=== PATIENT | female | born 2000 | race Caucasian/White ===

== ENCOUNTER 2023-05-27 22:10 | Inpatient (IN) ==
[2023-05-27 23:25] LABS: Appearance Urine Clear (Clear); Bacteria Urine Automated 1+ (Negative); Bilirubin Urine Negative (Negative); Blood Urine 3+ (Negative); Color Urine Yellow; Epithelial Cell Urine Auto >30 /lpf (0-5); Glucose Urine UA Negative (Negative); Ketones Urine 2+ (Negative); Leukocyte Esterase Urine Trace (Negative); Nitrite Urine Negative (Negative); Protein Urine Trace (Negative); RBC Urine Automated 0-4 /hpf (0-4); Specific Gravity Urine 1.029 (1.000-1.030); Urobilinogen Urine Negative (Negative); pH Urine 6.5 (4.5-7.5)
[2023-05-27 23:26] LABS: Basophils # (auto) 0.03 K/uL (0.00-0.20); Basophils % (auto) 0.3 %; Eosinophils # (auto) 0.05 K/uL (0.00-0.50); Eosinophils % (auto) 0.5 %; Hematocrit (blood only) 46.2 % (37.0-47.0); Hemoglobin 15.5 g/dl (12.0-16.0); Immature Granulocytes # (auto) 0.03 K/uL (0.01-0.20); Immature Granulocytes % (auto) 0.3 %; Lymphocytes # (auto) 1.95 K/uL (1.20-3.40); Mean Corpuscular Hemoglobin 28.1 pg (25.0-34.0); Mean Corpuscular Hgb Conc 33.5 g/dL (32.0-36.0); Mean Corpuscular Volume 83.8 fL (80.0-100.0); Mean Platelet Volume 9.5 fL (9.4-12.4); Monocytes # (auto) 0.46 K/uL (0.11-0.59); Monocytes % (auto) 4.7 %; Neutrophils # (auto) 7.25 K/uL (1.40-6.50); Neutrophils % (auto) 74.2 %; Platelet Count 382 K/uL (130-400); RDW Coefficient of Variation 12.6 % (11.5-14.5); RDW Standard Deviation 38.4 fL (36.4-46.3); Red Blood Count 5.51 M/uL (4.20-5.40); White Blood Count 9.77 K/ul (4.8-10.8)
[2023-05-27] MEDS: IBUPROFEN 600 MG TAB PO STA (23:32)
[2023-05-27 23:39] LABS: Albumin Globulin Ratio 1.4 (0.9-2); Albumin Level 4.9 gm/dl (3.4-5.0); BUN Creatinine Ratio 13.3 (10-20); Bilirubin,Total 0.4 mg/dl (0.2-1.0); Calcium 9.9 mg/dl (8.6-10.3); Creatinine Clr Calc Pharmacy 93.5 ml/min; Est GFR (African American) 104.5 ml/min; Est GFR (Non-African American) 90.1 ml/min; Globulin 3.6 gm/dl (2.5-4.0); Potassium 3.5 mmol/L (3.5-5.1); Pregnancy Test, Serum Negative (Negative); Total Protein 8.5 gm/dl (6.0-8.3)
[2023-05-27 23:51] LABS: Acetaminophen < 3 ug/ml (10-30); Salicylate < 3.0 mg/dl (3.0-30)
[2023-05-27 23:54] LABS: Thyroid Stimulating Hormone 0.864 uIu/ml (0.300-4.500)
[2023-05-28 00:08] LABS: Amphetamines+Metham, Urine Neg (Neg); Barbiturates, Urine Neg (Neg); Benzodiazepine, Urine Neg (Neg); Cocaine, Urine Neg (Neg); MDMA (Ecstacy), Urine Neg (Neg); Marijuana, Urine Neg (Neg); Methadone, Urine Neg (Neg); Opiate, Urine Neg (Neg); Phencyclidine, Urine Neg (Neg)
--- NOTE | 2023-05-28 00:16 | Emergency Department Note ---
Impression & Plan Suicidal ideation, Depression, UTI (urinary tract infection) ED Provider Note HISTORY OF PRESENT ILLNESS: Patient is a 22-year-old female presenting with worsening depression and suicidal ideation. Patient reports she has a history of bipolar disorder and OCD. She was previously prescribed sertraline and stopped taking it in January 2023. She reports that she has had a lot of social stressors recently with graduate school and personal issues and had talked with her home provider and [place] who recommended that she restart her sertraline. She restarted it within the last week and has been having significant fatigue and worsening depression symptoms. She reports that she thinks that she should sleep for forever. Denies any plan for suicide. She has had a previous suicide attempt in eighth grade. She reports she used to practice cutting behaviors but has not done any recently. She vapes and drinks 4-5 shots of alcohol daily. She denies any homicidal ideation. Denies any auditory or visual hallucinations. ROS: as above PHYSICAL EXAM: Constitutional: Patient appears in no acute distress. HENT: Head: Normocephalic and atraumatic. Eyes: EOMI, PERRL Mouth/Throat: Mucous membranes moist. Neck: Trachea midline. Neck supple. Musculoskeletal: No edema, tenderness or deformity noted. Skin: Warm and dry. No rash, erythema, pallor or cyanosis Psychiatric: Intermittently tearful. Neurological: Alert and keenly responsive. CN II-XII grossly intact, moving all extremities equally and fully. MDM: - Vitals signs showed hypertension and tachycardia - History obtained via patient. History as above. - Chronic conditions affecting care: bipolar personality disorder; OCD - Differential diagnoses include, but are not limited to: UTI; alcohol intoxication; drug intoxication; depression; electrolyte abnormality - External medical records reviewed. - Patient seen in conjunction with behavioral health manager rn case. Patient is agreeable to voluntary admission for 201. - Laboratory workup interpreted by myself showed normal WBC; stable electrolytes; negative alcohol/salicylate/acetaminophen levels - COVID negative - UA showed evidence of infection. Patient given 500 mg PO keflex in ER. Will need to continue keflex 500 mg BID x5 days. - UDS negative - Patient medically cleared. She filled out 201, which I signed. - Patient was accepted to [address] inpatient psychiatric unit for further evaluation and management. ASSESSMENT AND PLAN: Diagnosis: suicidal ideation; depression; UTI Plan: Admit Past Med/Surg History Medical History No pertinent family history No pertinent past medical history Surgical History No pertinent past surgical history Social History Smoking Status: Current every day smoker Tobacco Type: E-cigarettes / Vaping Preferred Language: Honduran Feels Safe at Home: Yes Gender Identity: Female Allergies Allergies Allergy/AdvReac Type Severity Reaction Status Date / Time No Known Allergies Allergy Unverified 11/28/22 22:01 Home Meds Home Medications Medication Instructions Recorded Confirmed sertraline 50 mg tablet 50 mg PO DAILY 11/28/22 05/27/23 hydroxyzine HCl 25 mg tablet 25 mg PO HS 05/27/23 05/27/23 Previous Rx's Medication Instructions Recorded albuterol sulfate 90 mcg/actuation 2 inh inhalation Q4H PRN shortness 11/28/22 aerosol inhaler (Proventil HFA) of breath or wheezing #8.5 grams azithromycin 250 mg tablet See Rx Instructions PO .COMPLEX #6 12/15/22 tabs benzonatate 100 mg capsule 100 mg PO TID PRN cough #20 caps 12/15/22 Results & Data (ED) Vital Signs Vital Signs - 24 hr 05/27/23 22:17 05/28/23 01:36 Temperature 37.1 C Temperature Source Temporal Artery Scan Pulse Rate 104 H Pulse Rate [Finger] 65 Respiratory Rate 18 18 Respiratory Effort / Characteristics Non-Labored Spontaneous Respiratory Depth Normal Blood Pressure 147/90 H Blood Pressure [Left Arm] 115/79 Blood Pressure Mean 109 Blood Pressure Mean [Left Arm] 91 Blood Pressure Position Sitting Pulse Oximetry 96 99 Oxygen Delivery Method Room Air Room Air Sepsis Recent Fever Within 48 Hours No Sepsis New/Unexplained Change in Mental Status No Sepsis Action Taken by Nursing No Action Required Laboratory Data 05/27/23 22:42 05/27/23 22:42 Lab Results 05/27/23 05/27/23 05/27/23 Range/Units 22:35 22:38 22:42 WBC 9.77 (4.8-10.8) K/ul RBC 5.51 H (4.20-5.40) M/uL Hgb 15.5 (12.0-16.0) g/dl Hct 46.2 (37.0-47.0) % MCV 83.8 (80.0-100.0) fL MCH 28.1 (25.0-34.0) pg MCHC 33.5 (32.0-36.0) g/dL RDW Std Deviation 38.4 (36.4-46.3) fL RDW Coeff of Rom 12.6 (11.5-14.5) % Plt Count 382 (130-400) K/uL MPV 9.5 (9.4-12.4) fL Immature Gran % (Auto) 0.3 % Neut % (Auto) 74.2 % Lymph % (Auto) 20.0 % [place] % (Auto) 4.7 % Eos % (Auto) 0.5 % Baso % (Auto) 0.3 % Neut # (Auto) 7.25 H (1.40-6.50) K/uL Lymph # (Auto) 1.95 (1.20-3.40) K/uL [place] # (Auto) 0.46 (0.11-0.59) K/uL Eos # (Auto) 0.05 (0.00-0.50) K/uL Baso # (Auto) 0.03 (0.00-0.20) K/uL Immature Gran # (Auto) 0.03 (0.01-0.20) K/uL Sodium 139 (136-145) mmol/L Potassium 3.5 (3.5-5.1) mmol/L Chloride 103 (98-107) mmol/L Carbon Dioxide 26 (21-32) mmol/L Anion Gap 10 (3-11) BUN 12 (6-23) mg/dl Creatinine 0.90 (0.6-1.2) mg/dl Est Cr Clr Drug Dosing 93.5 ml/min Est GFR ( Amer) 104.5 ml/min Est GFR (Non-Af Amer) 90.1 ml/min BUN/Creatinine Ratio 13.3 (10-20) Glucose 98 (70-99(Fasting)) mg/dl Calcium 9.9 (8.6-10.3) mg/dl Total Bilirubin 0.4 (0.2-1.0) mg/dl AST 18 (13-39) U/L ALT 12 (7-52) U/L Alkaline Phosphatase 95 (34-104) U/L Total Protein 8.5 H (6.0-8.3) gm/dl Albumin 4.9 (3.4-5.0) gm/dl Globulin 3.6 (2.5-4.0) gm/dl Albumin/Globulin Ratio 1.4 (0.9-2) TSH 0.864 (0.300-4.500) uIu/ml HCG, Qual Negative (Negative) Urine Color Yellow Urine Appearance Clear (Clear) Urine pH 6.5 (4.5-7.5) Ur Specific [place] 1.029 (1.000-1.030) Urine Protein Trace H (Negative) Urine Glucose (UA) Negative (Negative) Urine Ketones 2+ H (Negative) Urine Blood 3+ H (Negative) Urine Nitrite Negative (Negative) Urine Bilirubin Negative (Negative) Urine Urobilinogen Negative (Negative) Ur Leukocyte Esterase Trace H (Negative) Urine WBC (Auto) 10-30 H (0-5) /hpf Urine RBC (Auto) 0-4 (0-4) /hpf U Hyaline Cast (Auto) 5-10 H (0-5) /lpf U Epithel Cells (Auto) >30 H (0-5) /lpf Urine Bacteria (Auto) 1+ H (Negative) Salicylates < 3.0 L (3.0-30) mg/dl Urine Opiates Screen Neg (Neg) Ur Methadone, Qual Neg (Neg) Acetaminophen < 3 L (10-30) ug/ml Urine Barbiturates Neg (Neg) Ur Phencyclidine (PCP) Neg (Neg) U Amphetamin/Meth Scrn Neg (Neg) MDMA (Ecstasy) Screen Neg (Neg) U Benzodiazepines Scrn Neg (Neg) Ur Cocaine Metabolite Neg (Neg) U Marijuana (THC) Screen Neg (Neg) Ethyl Alcohol mg/dL < 10.0 (<10.0) mg/dl SARS-CoV-2, RNA, NAAT NEGATIVE (NEGATIVE) Administered Medications Discontinued Medications Cephalexin HCl (Cephalexin 250 Mg Cap) 500 mg PO NOW ONE Stop: 05/28/23 00:13 Last Admin: 05/28/23 00:33 Dose: 500 mg Documented By: KMF Ibuprofen (Ibuprofen 600 Mg Tab) 600 mg PO NOW STA Stop: 05/27/23 23:10 Last Admin: 05/27/23 23:32 Dose: 600 mg Documented By: EDA Discharge Plan Visit Data Chief Complaint: Mental Health Evaluation Stated Complaint: SUICIDAL IDEATIONS/MENTAL HEALTH EVAL ED Provider: Merary Frances Discharge Problem: Suicidal ideation, Depression, UTI (urinary tract infection) Forms Stand Alone Forms: [facility] [employer], Suicide Prevention Resources Prescriptions Prescriptions: No Action sertraline 50 mg tablet 50 mg PO DAILY albuterol sulfate [Proventil HFA] 90 mcg/actuation HFA aerosol inhaler 2 inh inhalation Q4H PRN (Reason: shortness of breath or wheezing) Qty: 8.5 0RF azithromycin 250 mg tablet See Rx Instructions .ROUTE .COMPLEX Qty: 6 0RF Rx Instructions: take 500 mg today (day 1), then 250 mg for 4 days (days 2-5) benzonatate 100 mg capsule 100 mg PO TID PRN (Reason: cough) Qty: 20 0RF hydroxyzine HCl 25 mg Tablet 25 mg PO HS Referrals Referrals: PCP,NO [Primary Care Provider] -
[2023-05-28] MEDS: cephALEXin 250 MG CAP PO ONE (00:33)
[2023-05-28] MEDS ORDERED: MAGNESIUM HYDROXIDE SUSP 30 ML UDC PO PRN (02:56)
[2023-05-28] MEDS ORDERED: hydrOXYzine HCl 25 MG TAB PO PRN (02:56)
[2023-05-28] MEDS ORDERED: BISMUTH SUBSALICYLATE LIQD 236 ML PO PRN (02:56)
[2023-05-28] MEDS ORDERED: SODIUM CHLORIDE 0.65% NA SOLN 45 ML (OCEAN) PRN (02:56)
[2023-05-28] MEDS ORDERED: ALUMINUM/MAGNESIUM SUSP 30 ML UDC PO PRN (02:56)
[2023-05-28] MEDS: ACETAMINOPHEN 325 MG TAB PO PRN (15:47)
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
[2023-05-28] MEDS: fluvoxaMINE MALEATE 50 MG TAB PO SCH (17:54)
[2023-05-28] MEDS: cephALEXin 500 MG CAP PO SCH (17:55)
[2023-05-28] MEDS ORDERED: cephALEXin 500 MG CAP PO SCH (21:00)
[2023-05-29] MEDS: hydrOXYzine HCl 25 MG TAB PO PRN (00:05)
--- NOTE | 2023-05-29 16:30 | Psychiatric Progress Note ---
Date of Service May 29, 2023 Impression / Recommendations Impression 22 yo female with a hx of suicide attempt as teen presents with acute SI on retrial of Zoloft but denies other evidence of activation or bipolarity. Aftercare will likely be complicated by her plans to relocate to [place] for 3 months at the end of the semester. Overall, I spent a total of 36 minutes with this case, including review of chart, direct evaluation of the patient, counseling the patient, ordering med ication, coordination with nursing, and documentation. 05/29/2023: improving (1) Depression: (2) Borderline personality disorder: (3) UTI (urinary tract infection): Plan 05/29/2023: Patient reports had a UTI recently and doubts finished full course of antibiotics. Culture grew skin karlo. Patient is tolerating Luvox. Would like Vistaril scheduled. 05/28/2023: The patient was [facility] to [facility] on q15 min checks (behavioral with suicide precautions) for safety. The patient will participate in group, recreational, and milieu therapies and will be offered additional individual and family sessions as clinically appropriate. Risks/benefits/alternatives reviewed re: antidepressants for the treatment of depression and/or anxiety. Discussion included but was not limited to FDA warnings re: suicidality in adolescents and young adults. The patient agreed to a trial of Luvox in place of Zoloft. Continue Keflex course started in ED pending UC. Inventory Assets Strengths: intelligent, independent Needs: improve coping, outpatient therapy Suicide Risk Level Suicide Risk Level: Moderate (q15 min suicide checks) Risk Factors Assessment : Yes Do You Have Access To A Gun?: No Mental Health Diagnoses: Yes Previous Attempt: Yes Previous Psychiatric Hospitalization: Yes Protective Factors Assessment Employed: Yes Stable Relationships: Yes Supportive Family: Yes Interval History Identifying Information GERMAIN ROCKAnnamariaMEGAN is a 22-year-old F, [employer] grad student from [place], has a history of a prior suicide attempt, and was admitted on 05/28/23 01:54 on a 201 voluntary commitment for SI with urge to SIB. Chief Complaint OCD, N Review of Systems Sleep Information Total Hours of Sleep: 4.5 Sleep Comments: Admitted at 0218 Meal Information Percent Meal Consumed - Breakfast: 100 Percent Meal Consumed - Lunch: 90 Percent Meal Consumed - Dinner: 100 Subjective Subjective Patient was seen & assessed and interval progress reviewed with nursing and social work. Cooperative with unit routines. Had some DFA but Vistaril prn helpful and would like schedule. Declines antacid, stomach better last pm even with starting new medication. Future focussed with regard to applying for visa and taking test next week. Physical Exam Psychiatric Orientation: alert and oriented x 3 Apperance: appropriately dressed and appropriately groomed Eye Contact: good eye contact Motor Behavior: no abnormal motor movements Speech: normal rate/rhythm/volume of speech Affect: + depressed affect Mood: + depressed mood Thought Process: goal directed thought process Thought Content: reality based without delusions Suicidal Thoughts: denies suicidal thoughts (on unit) Homicidal Thoughts: denies homicidal thoughts Hallucinations: no auditory hallucinations and no visual hallucinations Cognition: attention grossly intact and language grossly intact Estimated Intelligence: consistent with education level Insight: + limited insight Judgment: + limited judgement Vital Signs (Past 24 Hours) Last Vital Signs Temp 36.1 C L 05/29/23 06:00 Pulse 68 05/29/23 06:43 Resp 16 05/29/23 06:00 BP 121/86 05/29/23 06:43 Pulse Ox 98 05/28/23 11:17 O2 Del Method Room Air 05/28/23 11:17 Results & Data ([facility]) Current Inpatient Medications Current Inpatient Medications: Current Inpatient Medications Acetaminophen (Acetaminophen 325 Mg Tab) 650 mg PO Q4H PRN PRN Reason: Headache or Minor Fever Stop: 06/27/23 02:55 Last Admin: 05/29/23 13:09 Dose: 650 mg Al Hydrox/Mg Hydrox/Simethicone (Aluminum/Magnesium Susp 30 Ml Udc) 30 ml PO Q4H PRN PRN Reason: GI Upset Stop: 06/27/23 02:55 Bismuth Subsalicylate (Bismuth Subsalicylate Liqd 236 Ml) 15 ml PO PRN PRN PRN Reason: Loose Stool Stop: 06/27/23 02:55 Cephalexin HCl (Cephalexin 500 Mg Cap) 500 mg PO QID MARIBEL; Protocol Stop: 06/02/23 17:09 Last Admin: 05/29/23 13:07 Dose: 500 mg Fluvoxamine Maleate (Fluvoxamine Maleate 50 Mg Tab) 25 mg PO DAILYBD MARIBEL Stop: 06/27/23 17:14 Last Admin: 05/28/23 17:54 Dose: 25 mg Hydroxyzine HCl (Hydroxyzine Hcl 25 Mg Tab) 50 mg PO HSZ PRN PRN Reason: Insomnia Stop: 06/27/23 02:55 Last Admin: 05/29/23 01:02 Dose: 50 mg Hydroxyzine HCl (Hydroxyzine Hcl 25 Mg Tab) 25 mg PO Q4H PRN PRN Reason: Anxiety Stop: 06/27/23 02:55 Hydroxyzine HCl (Hydroxyzine Hcl 25 Mg Tab) 50 mg PO HS MARIBEL Stop: 06/28/23 21:59 Magnesium Hydroxide (Magnesium Hydroxide Susp 30 Ml Udc) 30 ml PO DAILY PRN PRN Reason: Constipation Stop: 06/27/23 02:55 Sodium Chloride (Sodium Chloride 0.65% Na Soln 45 Ml ([place])) 1 - 2 sprays NA PRN PRN PRN Reason: Nasal Dryness/Congestion Stop: 06/27/23 02:55 Post Discharge Appointments Primary Care Physician Name Of Family Doctor/PCP: Fabiana Mejia [facility])
[2023-05-29] MEDS: hydrOXYzine HCl 25 MG TAB PO SCH (21:13)
--- NOTE | 2023-05-30 15:14 | Psychiatric Progress Note ---
Date of Service May 30, 2023 Impression / Recommendations Impression 22 yo female with a hx of suicide attempt as teen presents with acute SI on retrial of Zoloft but denies other evidence of activation or bipolarity. Aftercare will likely be complicated by her plans to relocate to [place] for 3 months at the end of the semester. Overall, I spent a total of 40 minutes with this case, including review of chart, direct evaluation of the patient, counseling the patient, ordering med ication, coordination with treatment team, and documentation. 05/30/2023: seems more anxious ahead of family meeting (1) Depression: (2) Borderline personality disorder: (3) UTI (urinary tract infection): Plan 05/30/2023: continue current medication and treatment plan. Prefers to complete antibiotics course since only a few more days. 05/29/2023: Patient reports had a UTI recently and doubts finished full course of antibiotics. Culture grew skin karlo. Patient is tolerating Luvox. Would like Vistaril scheduled. 05/28/2023: The patient was admitted to the [facility]) on q15 min checks (behavioral with suicide precautions) for safety. The patient will participate in group, recreational, and milieu therapies and will be offered additional individual and family sessions as clinically appropriate. Risks/benefits/alternatives reviewed re: antidepressants for the treatment of depression and/or anxiety. Discussion included but was not limited to FDA warnings re: suicidality in adolescents and young adults. The patient agreed to a trial of Luvox in place of Zoloft. Continue Keflex course started in ED pending UC. 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 Chief Complaint "I'm actually doing OK but have parameters for the meeting with my mom". Review of Systems Sleep Information Total Hours of Sleep: 6.5 Sleep Comments: Admitted at 0218 Meal Information Percent Meal Consumed - Breakfast: 50 Percent Meal Consumed - Lunch: 100 Percent Meal Consumed - Dinner: 50 Subjective Subjective Patient was seen & assessed and interval progress reviewed with treatment team. Patient has strong opinions re: specific staff. Remains focussed on return to campus tomorrow, no discharge promised. Denies any recurrence of SI. Feels eating/med tolerance is much improved. Finds Vistaril effective and would definitely like to continue on discharge, reports own supply. Physical Exam Psychiatric Orientation: alert and oriented x 3 Apperance: appropriately dressed and appropriately groomed Eye Contact: good eye contact Motor Behavior: no abnormal motor movements Speech: normal rate/rhythm/volume of speech Affect: euthymic affect Mood: + depressed mood Thought Process: goal directed thought process Thought Content: reality based without delusions Suicidal Thoughts: denies suicidal thoughts (on unit) Homicidal Thoughts: denies homicidal thoughts Hallucinations: no auditory hallucinations and no visual hallucinations Cognition: attention grossly intact and language grossly intact Estimated Intelligence: consistent with education level Insight: + limited insight Judgment: + limited judgement Vital Signs (Past 24 Hours) Last Vital Signs Temp 36.6 C 05/30/23 06:38 Pulse 72 05/30/23 06:40 Resp 16 05/30/23 06:38 BP 109/77 05/30/23 06:40 Pulse Ox 98 05/28/23 11:17 O2 Del Method Room Air 05/28/23 11:17 Results & Data ([facility]) Current Inpatient Medications Current Inpatient Medications: Current Inpatient Medications Acetaminophen (Acetaminophen 325 Mg Tab) 650 mg PO Q4H PRN PRN Reason: Headache or Minor Fever Stop: 06/27/23 02:55 Last Admin: 05/30/23 09:54 Dose: 650 mg Al Hydrox/Mg Hydrox/Simethicone (Aluminum/Magnesium Susp 30 Ml Udc) 30 ml PO Q4H PRN PRN Reason: GI Upset Stop: 06/27/23 02:55 Bismuth Subsalicylate (Bismuth Subsalicylate Liqd 236 Ml) 15 ml PO PRN PRN PRN Reason: Loose Stool Stop: 06/27/23 02:55 Cephalexin HCl (Cephalexin 500 Mg Cap) 500 mg PO QID MARIBEL; Protocol Stop: 06/02/23 10:00 Last Admin: 05/30/23 13:36 Dose: 500 mg Fluvoxamine Maleate (Fluvoxamine Maleate 50 Mg Tab) 25 mg PO DAILYBD MARIBEL Stop: 06/27/23 17:14 Last Admin: 05/29/23 17:17 Dose: 25 mg Hydroxyzine HCl (Hydroxyzine Hcl 25 Mg Tab) 50 mg PO HSZ PRN PRN Reason: Insomnia Stop: 06/27/23 02:55 Last Admin: 05/29/23 01:02 Dose: 50 mg Hydroxyzine HCl (Hydroxyzine Hcl 25 Mg Tab) 25 mg PO Q4H PRN PRN Reason: Anxiety Stop: 06/27/23 02:55 Hydroxyzine HCl (Hydroxyzine Hcl 25 Mg Tab) 50 mg PO HS MARIBEL Stop: 06/28/23 21:59 Last Admin: 05/29/23 21:13 Dose: 50 mg Magnesium Hydroxide (Magnesium Hydroxide Susp 30 Ml Udc) 30 ml PO DAILY PRN PRN Reason: Constipation Stop: 06/27/23 02:55 Sodium Chloride (Sodium Chloride 0.65% Na Soln 45 Ml ([place])) 1 - 2 sprays NA PRN PRN PRN Reason: Nasal Dryness/Congestion Stop: 06/27/23 02:55 Mental Health & Subst Abuse Tx Psychiatrist Name of Psychiatrist: Artem [facility] Psychiatrist's Date Of Appointment With Psychiatric Provider: 06/05/23 Time of Appointment with Psychiatrist: 10:00 am Psychiatric Appointment Comment: Virtual Therapist Name of Therapist: Artem [facility] Therapist's Date of Therapist Appointment: 06/05/23 Time of Therapist Appointment: 10:00 am Therapy Appointment Comment: Virtual Post Discharge Appointments Primary Care Physician Name Of Family Doctor/PCP: [facility] Primary [facility] Time of Appointment with PCP: Please follow up with primary care as needed. Provider Appointment Comment: [facility]– [place], [facility] Contact Information Discharge
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
[2023-05-31] MEDS ORDERED: DESTROY THIS MEDICATION ONE (11:45)
== END 2023-05-31 14:00 | disposition home or self-care (01) | DRG 885 ==
LOC: ED 22:10 → 3S 05-28 01:54